=== PATIENT | female | born 1955 | race Caucasian/White ===

== ENCOUNTER 2024-08-31 10:45 | Emergency (ER) | payer OTHER ==
--- NOTE | 2024-08-31 11:44 | RAD REPORT ---
EXAMINATION: Shoulder Right 2+ Views CLINICAL INDICATION: Female, 69 years old. PAIN RIGHT COMPARISON: No prior exam. FINDINGS: No acute fracture. No malalignment/dislocation. Moderate right glenohumeral joint degenerative changes. Mild right AC joint degenerative changes. Other: n/a IMPRESSION: No acute osseous abnormality. Chronic findings.
--- NOTE | 2024-08-31 12:34 | EDPHYS ---
Physician Documentation [facility] Name: Caren Pina Age: 69 yrs Sex: Female : 1955 Arrival Date: 08/31/2024 Time: 10:45 Bed 11 Private MD: ED Physician Jania Herrera HPI: 08/31 12:31 This 69 yrs old Female presents to ER via Ambulatory with complaints of Shoulder Pain, sp3 Arm Pain. 12:31 69-year-old female with a history of arthritis presents to the ED with chief complaint sp3 right shoulder pain over the last several days. They are here visiting from [place] on vacation and she states [place]. She denies any direct trauma, swelling, axillary pain, neck pain, loss of function of the hand or any other signs or symptoms on ROS at this time.. Historical: - Allergies: 10:52 No Known Allergies; ll1 - PMHx: 10:52 Arthritis; ll1 - PSHx: 10:52 None; ll1 - Immunization history:: Adult Immunizations up to date. - Social history:: Smoking status: Patient denies any tobacco usage or history of. ROS: 12:32 Constitutional: Negative for fever, chills, and weight loss, Eyes: Negative for injury, sp3 pain, redness, and discharge, ENT: Negative for injury, pain, and discharge, Neck: Negative for injury, pain, and swelling, Cardiovascular: Negative for chest pain, palpitations, and edema, Respiratory: Negative for shortness of breath, cough, wheezing, and pleuritic chest pain, Abdomen/GI: Negative for abdominal pain, nausea, vomiting, diarrhea, and constipation, Back: Negative for injury and pain, Skin: Negative for injury, rash, and discoloration, Neuro: Negative for headache, weakness, numbness, tingling, and seizure, Psych: Negative for depression, anxiety, suicide ideation, homicidal ideation, and hallucinations, Allergy/Immunology: Negative for hives, rash, and allergies, Endocrine: Negative for neck swelling, polydipsia, polyuria, polyphagia, and marked weight changes, 12:32 All other systems are negative, Exam: 12:32 Constitutional: This is a well developed, well nourished patient who is awake, alert, sp3 and in no acute distress. Head/Face: Normocephalic, atraumatic. Eyes: Pupils equal round and reactive to light, extra-ocular motions intact. Lids and lashes normal. Conjunctiva and sclera are non-icteric and not injected. Cornea within normal limits. Periorbital areas with no swelling, redness, or edema. Neck: Trachea midline, no thyromegaly or masses palpated, and no cervical lymphadenopathy. Supple, full range of motion without nuchal rigidity, or vertebral point tenderness. No Meningismus. Chest/axilla: Normal chest wall appearance and motion. Nontender with no deformity. No lesions are appreciated. Cardiovascular: Regular rate and rhythm with a normal S1 and S2. No gallops, murmurs, or rubs. Normal PMI, no JVD. No pulse deficits. Respiratory: Lungs have equal breath sounds bilaterally, clear to auscultation and percussion. No rales, rhonchi or wheezes noted. No increased work of breathing, no retractions or nasal flaring. Abdomen/GI: Soft, non-tender, with normal bowel sounds. No distension or tympany. No guarding or rebound. No evidence of tenderness throughout. Back: No spinal tenderness. No costovertebral tenderness. Full range of motion. Skin: Warm, dry with normal turgor. Normal color with no rashes, no lesions, and no evidence of cellulitis. Neuro: Awake and alert, GCS 15, oriented to person, place, time, and situation. Cranial nerves II-XII grossly intact. Motor strength 5/5 in all extremities. Sensory grossly intact. Cerebellar exam normal. Normal gait. Psych: Awake, alert, with orientation to person, place and time. Behavior, mood, and affect are within normal limits. 12:32 Musculoskeletal/extremity: Normal neurovascular exam. Diffuse pain to right shoulder.. Vital Signs: 10:52 BP 191 / 101; Pulse 63; Resp 17; Temp 97.7; Pulse Ox 97% ; Weight 77.11 kg; Height 5 ll1 ft. 6 in. ; Pain 7/10; 12:55 BP 136 / 61; Pulse 62; Resp 16; Pulse Ox 98% on R/A; jb4 10:52 Body Mass Index 27.44 (77.11 kg, 167.64 cm) ll1 10:52 Pain Scale: Adult ll1 MDM: 10:50 Medical Screening Exam initiated sp3 12:32 Data reviewed: vital signs, nurses notes, radiologic studies. ED course: Right shoulder sp3 x-ray demonstrates inflammatory changes. Will administer [place] and a sling here and discharge patient home on tramadol and prednisone. Patient to follow-up with orthopedics back emissary Thursday back.. 08/31 10:59 Order name: Shoulder Right (2 View) XRAY; Complete Time: 11:51 sp3 08/31 12:30 Order name: Sling; Complete Time: 12:35 sp3 Administered Medications: 12:35 Drug: HYDROcodone-acetaminophen PO 5 mg-325 mg 2 tabs PO once Route: PO; jb4 12:59 Follow up: Response: Medication administered at discharge. jb4 Disposition Summary: 08/31/24 12:33 Discharge Ordered Notes: Location: Home sp3 Condition: Stable sp3 Diagnosis - Right shoulder pain, right shoulder arthritis sp3 Followup: sp3 - With: Private Physician - When: Upon discharge from the Emergency Department - Reason: Continuance of care Discharge Instructions: - Discharge Summary Sheet sp3 - Shoulder Pain sp3 Forms: - Medication Reconciliation Form sp3 - Antibiotic Education sp3 - Prescription Opioid Use sp3 - Patient Portal Instructions sp3 - Leadership Thank You Letter sp3 Prescriptions: - Tramadol 50 mg Oral Tablet - take 1 tablet ORAL route every 8 hours as needed; 12 tablet; Refills: 0, sp3 Product Selection Permitted - Prednisone 20 mg Oral Tablet - take 2 tablets ORAL route once daily for 5 days; 10 tablet; Refills: 0, Product sp3 Selection Permitted Signatures: Dispatcher [employer] EDScott Srivastava RN RN jb4 Dominic Hobson RN RN ll1 Jania Herrera MD MD sp3 Corrections: (The following items were deleted from the chart) 11:00 11:00 Shoulder Right 2 View+RAD.RAD.BRZ ordered. EDMS EDMS 11:41 11:20 Shoulder Right 2 View+RAD.RAD.BRZ ordered. EDSD EDMS 12:32 12:31 6-year-old female with a history of arthritis presents to the ED with chief sp3 complaint right shoulder pain. sp3
--- NOTE | 2024-08-31 12:34 | ER ---
Nurse's Notes [facility] Name: Caren Pina Age: 69 yrs Sex: Female : 1955 Arrival Date: 08/31/2024 Time: 10:45 Bed 11 Private MD: Diagnosis: Right shoulder pain, right shoulder arthritis Presentation: 08/31 10:52 Chief complaint: Patient states: R shoulder pain that radiates into R arm for 4 days. ll1 No specific trauma or falls. Coronavirus screen: Client denies travel out of the [place] in the last 14 days. At this time, the client does not indicate any symptoms associated with coronavirus-19. Ebola Screen: Patient denies travel to an Ebola-affected area in the 21 days before illness onset. Initial Sepsis Screen: Does the patient meet any 2 criteria? No. Patient's initial sepsis screen is negative. Does the patient have a suspected source of infection? No. Patient's initial sepsis screen is negative. Risk Assessment: Do you want to hurt yourself or someone else? Patient reports no desire to harm self or others. Onset of symptoms was August 27, 2024. 10:52 Method Of Arrival: Ambulatory ll1 10:52 Acuity: DARIAN 3 ll1 Triage Assessment: 10:52 General: Appears uncomfortable, Behavior is calm, cooperative, appropriate for age. ll1 Pain: Complains of pain in R shoulder Pain radiates to right arm Quality of pain is described as aching. Musculoskeletal: Reports pain in R shoulder. Historical: - Allergies: 10:52 No Known Allergies; ll1 - PMHx: 10:52 Arthritis; ll1 - PSHx: 10:52 None; ll1 - Immunization history:: Adult Immunizations up to date. - Social history:: Smoking status: Patient denies any tobacco usage or history of. Screenin:18 [facility] ED Fall Risk Assessment (Adult) History of falling in the last 3 months, jb4 including since admission No falls in past 3 months (0 pts) Confusion or Disorientation No (0 pts) Intoxicated or Sedated No (0 pts) Impaired Gait No (0 pts) Mobility Assist Device Used No (0 pt) Altered Elimination No (0 pt) Score/Fall Risk Level 0 - 2 = Low Risk Oriented to surroundings, Maintained a safe environment. Abuse screen: Denies threats or abuse. Nutritional screening: No deficits noted. Tuberculosis screening: No symptoms or risk factors identified. Assessment: 11:43 Reassessment: Patient and/or family updated on plan of care and expected duration. Pain ll1 level reassessed. 12:18 Reassessment: Patient appears in no apparent distress at this time. Patient and/or jb4 family updated on plan of care and expected duration. Pain level reassessed. Patient is alert, oriented x 3, equal unlabored respirations, skin warm/dry/pink. Pt continues to report pain, is requesting and ultrasound of the right upper extremity due to the pain. ER physician notified. Vital Signs: 10:52 BP 191 / 101; Pulse 63; Resp 17; Temp 97.7; Pulse Ox 97% ; Weight 77.11 kg; Height 5 ll1 ft. 6 in. ; Pain 7/10; 12:55 BP 136 / 61; Pulse 62; Resp 16; Pulse Ox 98% on R/A; jb4 10:52 Body Mass Index 27.44 (77.11 kg, 167.64 cm) ll1 10:52 Pain Scale: Adult ll1 ED Course: 10:48 Patient arrived in ED. im 10:50 Jania Herrera MD is Attending Physician. sp3 10:52 Arm band placed on. ll1 10:54 Triage completed. ll1 11:40 Shoulder Right (2 View) XRAY In Process Unspecified. EDMS 11:43 Patient placed in an exam room, on a stretcher. ll1 12:18 Scott Caba, RN is Primary Nurse. jb4 12:18 Patient has correct armband on for positive identification. Bed in low position. Call jb4 light in reach. Side rails up X 1. Provided Education on: plan of care. 12:58 No provider procedures requiring assistance completed. Patient did not have IV access jb4 during this emergency room visit. Administered Medications: 12:35 Drug: HYDROcodone-acetaminophen PO 5 mg-325 mg 2 tabs PO once Route: PO; jb4 12:59 Follow up: Response: Medication administered at discharge. jb4 Medication: 12:18 VIS not applicable for this client. jb4 Outcome: 12:33 Discharge ordered by . sp3 12:58 Discharged to home ambulatory, jb4 12:58 Condition: stable 12:58 Discharge instructions given to patient, Instructed on discharge instructions, follow up and referral plans. no drinking with medication, no driving heavy equipment, medication usage, Demonstrated understanding of instructions, follow-up care, medications, Prescriptions given X 2, 12:59 Patient left the ED. jb4 Signatures: Dispatcher [employer] EDMS Scott Caba RN RN jb4 Dominic Hobson RN RN ll1 Jania Herrera MD MD sp3 Fabiola Vasquez
[2024-08-31 15:14] VITALS: TEMP 97.7
[2024-08-31 15:16] VITALS: BP 136/61; O2SAT 98
== END 2024-08-31 12:59 | disposition home or self-care (01) ==
LOC: ER 10:45
DX: M19.011 Primary osteoarthritis, right shoulder (principal)

== ENCOUNTER 2024-09-06 11:05 | Emergency (ER) | payer OTHER ==
[2024-09-06] MEDS ORDERED: KETOROLAC 30 MG/ML INJ ONE (11:20)
--- NOTE | 2024-09-06 11:25 | EDPHYS ---
Physician Documentation [facility] Name: Caren Pina Age: 69 yrs Sex: Female : 1955 Arrival Date: 09/06/2024 Time: 11:05 Bed IW2 Private MD: ED Physician Lino Ferguson HPI: 09/06 13:09 This 69 yrs old Female presents to ER via Ambulatory with complaints of Shoulder Pain. rt 13:09 Patient was seen in the ED 1 week ago for a right shoulder pain that occurred when her rt dog pulled her while walking the dog. X-rays were negative, was discharged on prednisone, tramadol. States that the pain has worsened. Denies other injury. Denies other acute complaints, symptoms are moderate severity, aching nature, nonradiating, no other aggravating alleviating factors.. Historical: - Allergies: : No Known Allergies; iw - PMHx: 11: Arthritis; iw - Immunization history:: Adult Immunizations up to date. - Infectious Disease History:: Denies. - Social history:: Smoking status: Patient denies any tobacco usage or history of. - Family history:: not pertinent. ROS: 13:09 Constitutional: Negative for fever, chills, and weight loss, Cardiovascular: Negative rt for chest pain, palpitations, and edema, Respiratory: Negative for shortness of breath, cough, wheezing, and pleuritic chest pain, Abdomen/GI: Negative for abdominal pain, nausea, vomiting, diarrhea, and constipation, 13:09 MS/extremity: Positive for pain, Negative for deformity, Exam: 13:09 Constitutional: This is a well developed, well nourished patient who is awake, alert, rt and in no acute distress. Head/Face: Normocephalic, atraumatic. Skin: Warm, dry with normal turgor. Normal color with no rashes, no lesions, and no evidence of cellulitis. Neuro: Awake and alert, GCS 15, oriented to person, place, time, and situation. Cranial nerves II-XII grossly intact. Motor strength 5/5 in all extremities. Sensory grossly intact. Cerebellar exam normal. Normal gait. Psych: Awake, alert, with orientation to person, place and time. Behavior, mood, and affect are within normal limits. 13:09 Musculoskeletal/extremity: Tenderness to the right shoulder, mostly over the scapular region, no deformities, full range of motion, pulses, motor, sensation are intact. Vital Signs: 11:20 BP 150 / 110; Pulse 75; Resp 16; Temp 97.6; Pulse Ox 99% on R/A; Weight 77.11 kg; iw Height 5 ft. 6 in. ; Pain 7/10; 11:20 Body Mass Index 27.44 (77.11 kg, 167.64 cm) iw 11:20 Pain Scale: Adult iw MDM: 11:17 Medical Screening Exam initiated rt 13:09 Differential diagnosis: Soft tissue injury, musculoskeletal pain. Data reviewed: vital rt signs, nurses notes, old medical records, Reviewed previous ED visit as well as radiology result. Test considered but Not performed: Other Details No new injury, repeat x-ray of the shoulder is not indicated. Symptoms are clearly musculoskeletal in nature, do not suspect cardiac etiology, EKG, labs are not indicated. Counseling: I had a detailed discussion with the patient and/or guardian regarding the historical points, exam findings, and any diagnostic results supporting the discharge/admit diagnosis, the need for outpatient follow up. Response to treatment: the patient's symptoms have mildly improved after treatment. Administered Medications: 11:28 Drug: Ketorolac IM 30 mg IM once Route: IM; Site: left ventrogluteal; iw 11:51 Follow up: Response: No adverse reaction; Pain is decreased ll1 Disposition Summary: 09/06/24 11:24 Discharge Ordered Notes: Location: Home rt Problem: an ongoing problem rt Symptoms: are unchanged rt Condition: Stable rt Diagnosis - Pain in right shoulder rt Followup: rt - With: Private Physician - When: 7 - 10 days - Reason: Discharge Instructions: - Discharge Summary Sheet rt - Shoulder Pain rt Forms: - Medication Reconciliation Form rt - Antibiotic Education rt - Prescription Opioid Use rt - Patient Portal Instructions rt - Leadership Thank You Letter rt Prescriptions: - codeine sulfate 15 mg Oral tablet - take 1 tablet ORAL route every 6 hours as needed; 15 tablet; Refills: 0, rt Product Selection Permitted - Cyclobenzaprine 10 mg Oral Tablet - take 1 tablet ORAL route every 8 hours As needed; 30 tablet; Refills: 0, rt Product Selection Permitted Signatures: Constance Tillman RN RN iw Lino Ferguson MD MD rt Dominic Hobson RN ll1
--- NOTE | 2024-09-06 11:25 | ER ---
Nurse's Notes [facility] Name: Caren Pina Age: 69 yrs Sex: Female : 1955 Arrival Date: 09/06/2024 Time: 11:05 Bed IW2 Private MD: Diagnosis: Pain in right shoulder Presentation: 09/06 11:20 Chief complaint: Patient states: was seen here for right shoulder pain and was sent iw home with tramadol and prednisone , has not gotten much relief. Coronavirus screen: At this time, the client does not indicate any symptoms associated with coronavirus-19. Ebola Screen: No symptoms or risks identified at this time. Initial Sepsis Screen: Does the patient meet any 2 criteria? No. Patient's initial sepsis screen is negative. Does the patient have a suspected source of infection? No. Patient's initial sepsis screen is negative. Risk Assessment: Do you want to hurt yourself or someone else? Patient reports no desire to harm self or others. Onset of symptoms was August 31, 2024. 11:20 Method Of Arrival: Ambulatory iw 11:20 Acuity: DARIAN 4 iw Triage Assessment: 11:34 General: Appears in no apparent distress. iw Historical: - Allergies: 11:23 No Known Allergies; iw - PMHx: 11:22 Arthritis; iw - Immunization history:: Adult Immunizations up to date. - Infectious Disease History:: Denies. - Social history:: Smoking status: Patient denies any tobacco usage or history of. - Family history:: not pertinent. Screenin:34 [facility] ED Fall Risk Assessment (Adult) History of falling in the last 3 months, iw including since admission No falls in past 3 months (0 pts) Confusion or Disorientation No (0 pts) Intoxicated or Sedated No (0 pts) Impaired Gait No (0 pts) Mobility Assist Device Used No (0 pt) Altered Elimination No (0 pt) Score/Fall Risk Level 0 - 2 = Low Risk. Abuse screen: Denies threats or abuse. Nutritional screening: No deficits noted. Tuberculosis screening: No symptoms or risk factors identified. Assessment: 11:33 General: Appears in no apparent distress. Behavior is calm, cooperative. Pain: iw Complains of pain in anterior aspect of right shoulder and posterior aspect of right shoulder Pain currently is 7 out of 10 on a pain scale. Neuro: Level of Consciousness is awake, alert, obeys commands, Oriented to person, place, time, situation, Moves all extremities. Full function. Cardiovascular: Patient's skin is warm and dry. Respiratory: Respiratory effort is even, unlabored, Respiratory pattern is regular. Derm: Skin is intact, is healthy with good turgor. Musculoskeletal: Range of motion: limited in right shoulder. 11:51 Reassessment: No changes from previously documented assessment. Patient and/or family ll1 updated on plan of care and expected duration. Pain level reassessed. Patient is alert, oriented x 3, equal unlabored respirations, skin warm/dry/pink. Vital Signs: 11:20 BP 150 / 110; Pulse 75; Resp 16; Temp 97.6; Pulse Ox 99% on R/A; Weight 77.11 kg; iw Height 5 ft. 6 in. ; Pain 7/10; 11:20 Body Mass Index 27.44 (77.11 kg, 167.64 cm) iw 11:20 Pain Scale: Adult ED Course: 11:13 Patient arrived in ED. im 11:14 Lino Ferguson MD is Attending Physician. rt 11:22 Triage completed. iw 11:22 Arm band placed on. iw 11:51 Patient has correct armband on for positive identification. Bed in low position. ll1 Provided Education on: ER procedures and process. Cardiac monitoring not applicable on this patient. 11:51 No provider procedures requiring assistance completed. Patient did not have IV access ll1 during this emergency room visit. Administered Medications: 11:28 Drug: Ketorolac IM 30 mg IM once Route: IM; Site: left ventrogluteal; iw 11:51 Follow up: Response: No adverse reaction; Pain is decreased ll1 Medication: 11:52 VIS not applicable for this client. ll1 Outcome: 11:24 Discharge ordered by MD. rt 11:51 Discharged to home ambulatory, ll1 11:51 Condition: stable 11:51 Discharge instructions given to patient, Instructed on discharge instructions, follow up and referral plans. no drinking with medication, no driving heavy equipment, medication usage, Demonstrated understanding of instructions, follow-up care, medications, Prescriptions given X 2, 11:52 Patient left the ED. ll1 Signatures: Constance Tillman RN RN iw Dominic Hobson RN RN 1 Lino Ferguson MD MD rt Fabiola Vasquez im Corrections: (The following items were deleted from the chart) 11:24 11:20 BP 150 / ???; Pulse 75bpm; Resp 16bpm; Pulse Ox 99% RA; Temp 97.6F; iw iw 11:24 11:20 BP 150 / ???; Pulse 75bpm; Resp 16bpm; Pulse Ox 99% RA; Temp 97.6F; 77.11 kg; iw Height 5 ft. 6 in.; BMI: 27.4; Pain 7/10, Adult; iw
[2024-09-06 11:56] VITALS: BP 150/110; TEMP 97.6; O2SAT 99
== END 2024-09-06 11:52 | disposition home or self-care (01) ==
LOC: ER 11:05
DX: M25.511 Pain in right shoulder (principal)